=== PATIENT | male | born 1985 | race African-American/Black ===

== ENCOUNTER 2016-09-07 03:35 | Emergency (ER) | payer MEDICAID ==
[~2016-09-07] VITALS: Ht 190.5 cm; Wt 115.0 kg
[2016-09-07] MEDS ORDERED: IBUPROFEN 600MG TABLET PO ONE (07:15)
[2016-09-07] MEDS ORDERED: CYCLOBENZAPRINE 10MG TABLET PO ONE (07:15)
[2016-09-07 07:27] VITALS: BP 106/63
== END 2016-09-07 08:35 | disposition home or self-care (01) ==
LOC: ER 07:22
DX: S70.01XA Contusion of right hip, initial encounter (principal); S60.211A Contusion of right wrist, initial encounter; S60.212A Contusion of left wrist, initial encounter; V13.4XXA Pedal cycle driver injured in collision with car, pick-up truck or van in traffic accident, initial encounter; Y93.89 Activity, other specified; Y92.481 Parking lot as the place of occurrence of the external cause
CPT/HCPCS: 73110; 73502; 99284

== ENCOUNTER 2016-09-16 20:12 | Emergency (ER) | payer SELFPAY | END 2016-09-16 21:42 | disposition left against medical advice (07) | LOC: ER 21:41 | DX: Z53.21 Procedure and treatment not carried out due to patient leaving prior to being seen by health care provider (principal) ==